=== PATIENT | female | born 1990 | race Two or more races ===

== ENCOUNTER 2017-06-22 21:53 | Emergency (ER) | payer OTHER ==
[~2017-06-22] VITALS: Ht 172.7 cm; Wt 80.7 kg
[2017-06-22 23:02] LABS: Urine Bilirubin Negative (Negative); Urine Blood TRACE /uL (Negative); Urine Color Yellow (Yellow); Urine Glucose Normal (Normal); Urine Ketone Negative (Negative); Urine Nitrite Negative (Negative); Urine RBC 1 /hpf (0 - 4); Urine Squamous Epithelial Cell MOD /hpf (<5); Urine Urobilinogen Normal (Negative); Urine pH 6.5 (5.0-8.0)
[2017-06-22 23:57] VITALS: BP 138/79
== END 2017-06-23 01:55 | disposition home or self-care (01) ==
LOC: ER 22:06
DX: R20.0 Anesthesia of skin (principal); N39.0 Urinary tract infection, site not specified
CPT/HCPCS: 81001; 81025; 93971